=== PATIENT | female | born 1945 | race Caucasian/White ===

== ENCOUNTER → 2017-03-26 | Outpatient (CLI) | payer OTHER ==
[~2017-03-26] MED LIST: CMD5 PO; ENOX80IN SQ; MULT-506 PO; PRLSR20 PO
--- NOTE | 2017-03-26 15:56 | DIAGNOSTIC IMAGING REPORT ---
RIGHT LOWER EXTREMITY VENOUS DOPPLER CLINICAL HISTORY: Right lower extremity swelling. COMPARISON STUDY: Bilateral lower extremity venous Doppler September 01, 2011. TECHNIQUE: Sonography of the deep venous system of the right lower extremity was performed. Compression and augmentation were evaluated. FINDINGS: The right common femoral, superficial femoral and popliteal veins were compressible. Augmentation was normal. Flow was shown within the deep calf vessels. IMPRESSION: No evidence of deep venous thrombus within the right lower extremity. Electronically signed by: Brayan Estrada M.D. 03/26/2017 3:54 PM Dictated Date/Time: 03/26/2017 3:54 PM
== END | disposition home or self-care (01) ==
LOC: C.ULTRBC 14:47
PROVIDERS: ATTEND Physician Assistant
DX: R22.41 Localized swelling, mass and lump, right lower limb (principal); S86.911A Strain of unspecified muscle(s) and tendon(s) at lower leg level, right leg, initial encounter; X58.XXXA Exposure to other specified factors, initial encounter

== ENCOUNTER → 2017-09-29 | Outpatient (CLI) | payer OTHER ==
[~2017-09-29] VITALS: Ht 157.5 cm; Wt 69.4 kg
[2017-09-29 13:54] VITALS: BP_DIAS 80
[2017-09-29 13:58] VITALS: Ht 157.5 cm; Wt 69.4 kg
== END | disposition home or self-care (01) ==
LOC: C.NRED 08:59
PROVIDERS: ATTEND Physician Assistant
DX: E11.9 Type 2 diabetes mellitus without complications (principal)

== ENCOUNTER → 2017-10-27 | Outpatient (CLI) | payer OTHER ==
[2017-09-29 13:54] VITALS: BP_DIAS 80
[~2017-10-27] VITALS: Ht 157.5 cm; Wt 67.7 kg
[2017-10-27 10:50] VITALS: Ht 157.5 cm; Wt 67.7 kg
== END | disposition home or self-care (01) ==
LOC: C.NRED 08:50
PROVIDERS: ATTEND Physician Assistant
DX: E11.9 Type 2 diabetes mellitus without complications (principal)